=== PATIENT | male | born 1965 | race Caucasian/White ===

== ENCOUNTER 2020-03-28 19:15 | Inpatient (IN) | payer OTHER ==
[~2020-03-28] VITALS: Ht 188 cm; Wt 104.1 kg
--- NOTE | 2020-03-28 19:39 | NUR ---
TASK RN: PT LAYING IN BED, BEDRAILS UP, CALL LIGHT IN REACH, CONNECTED TO CARDIAC, BP AND O2 MONITORS. POSITIONED TO COMFORT, ALL NEEDS MET AT THIS TIME.
[2020-03-28 19:51] LABS: INTERNATIONAL NORMALIZED RATIO 0.97 (0.93-1.1); PROTHROMBIN TIME 10.3 Seconds (9.6-11.5)
[2020-03-28 19:54] LABS: ALANINE AMINOTRANSFERASE 26 U/L (12-78); ANION GAP 6 mmol/L (5-15); CALCIUM 9.6 mg/dL (8.5-10.1); CHLORIDE 106 mmol/L (98-107); CREATININE 0.91 mg/dL (0.7-1.3)
[2020-03-28 19:57] LABS: ALKALINE PHOSPHATASE 99 U/L (45-117); BILIRUBIN,TOTAL 0.6 mg/dL (0.2-1.0); TOTAL PROTEIN 8.4 g/dL (6.4-8.2)
[2020-03-28] MEDS ORDERED: HYDROcodone/APAP 5/325 TABLET PO ONE (20:00)
[2020-03-28 20:26] LABS: BASOPHILS # (AUTO) 0.03 x10^3/uL (0-0.1); BASOPHILS % (AUTO) 0 % (0-1); EOSINOPHILS # (AUTO) 0.49 x10^3/uL (0-0.4); EOSINOPHILS % (AUTO) 5 % (1-7); LYMPHOCYTES # (AUTO) 2.32 x10^3/uL (1-3.4); LYMPHOCYTES % (AUTO) 23 % (22-44); MD NO; MEAN CORPUSCULAR HEMOGLOBIN 27.9 pg (27.5-34.5); MEAN CORPUSCULAR HGB CONC 32.1 g/dL (33.2-36.2); MEAN CORPUSCULAR VOLUME 86.8 fL (81-97); MEAN PLATELET VOLUME 7.7 fL (7.4-10.4); MONOCYTES # (AUTO) 0.74 x10^3/uL (0.2-0.8); MONOCYTES % (AUTO) 7 % (2-9); NEUTROPHILS # (AUTO) 6.69 x10^3/uL (1.8-6.8); NEUTROPHILS % (AUTO) 65 % (42-75); PLATELET COUNT 327 x10^3/uL (130-400); RED BLOOD COUNT 5.63 x10^6/uL (4.38-5.82); RED CELL DISTRIBUTION WIDTH 13.4 % (9.4-14.8)
--- NOTE | 2020-03-28 20:50 | NUR ---
PATIENT JUST SENT TO CT SCAN, VSS,NAD. HE DENIES ANY SOB OR CP. RN WILL CONTINUE TO MONITOR
[2020-03-28] MEDS ORDERED: PLEASE ENTER ALLERGIES MC SCH (21:30)
[2020-03-28] MEDS ORDERED: OMNIPAQUE 350 MG/ML, 150 ML BOTTLE ONE (21:30)
[2020-03-28] MEDS ORDERED: HEPARIN 5,000 UNITS/ML, 1ML ONE (21:50)
[2020-03-28] MEDS ORDERED: HEPARIN 25,000 UNITS/250ML PMX 250 ML ONE (21:51)
[2020-03-28] MEDS ORDERED: HEPARIN 5,000 UNITS/ML, 1ML IV PRN (22:00)
[2020-03-28] MEDS ORDERED: morphine SULFATE 10 MG/ML, 1ML IVPush PRN (22:00)
[2020-03-28] MEDS ORDERED: BISACODYL 10 MG SUPP PR PRN (22:00)
[2020-03-28] MEDS ORDERED: POLYETHYLENE GLYCOL 17 GM PACKET PO PRN (22:00)
[2020-03-28] MEDS ORDERED: HEPARIN 5,000 UNITS/ML, 1ML IV ONE ×2 (22:00→23:00)
[2020-03-28] MEDS ORDERED: HYDROcodone/APAP 5/325 TABLET PO PRN (22:00)
[2020-03-28] MEDS ORDERED: hydrALAzine 20 MG/ML, 1ML IVPush PRN (22:00)
[2020-03-28] MEDS ORDERED: ACETAMINOPHEN 325 MG TABLET PO PRN (22:00)
[2020-03-28] MEDS ORDERED: HEPARIN 25,000 UNITS/250ML PMX 250 ML IV PRN ×2 (22:00→23:00)
[2020-03-28] MEDS ORDERED: MELATONIN 5 MG TABLET PO PRN (22:00)
[2020-03-28] MEDS ORDERED: ONDANSETRON 2MG/ML, 2ML IVPush PRN (22:00)
[2020-03-28 22:51] LABS: TROPONIN I < 0.015 ng/mL (0.000-0.045)
[2020-03-28 23:00] VITALS: BP 163/105
[2020-03-28] MEDS ORDERED: METF500T17 PO (23:08)
[2020-03-28 23:41] VITALS: BP 159/91
[2020-03-29 04:03] VITALS: BP 138/90
[2020-03-29 04:52] LABS: BASOPHILS # (AUTO) 0.06 x10^3/uL (0-0.1); BASOPHILS % (AUTO) 1 % (0-1); EOSINOPHILS # (AUTO) 0.64 x10^3/uL (0-0.4); EOSINOPHILS % (AUTO) 6 % (1-7); LYMPHOCYTES # (AUTO) 3.49 x10^3/uL (1-3.4); LYMPHOCYTES % (AUTO) 34 % (22-44); MD NO; MEAN CORPUSCULAR HEMOGLOBIN 28.1 pg (27.5-34.5); MEAN CORPUSCULAR HGB CONC 32.8 g/dL (33.2-36.2); MEAN CORPUSCULAR VOLUME 85.7 fL (81-97); MEAN PLATELET VOLUME 7.4 fL (7.4-10.4); MONOCYTES # (AUTO) 0.81 x10^3/uL (0.2-0.8); MONOCYTES % (AUTO) 8 % (2-9); NEUTROPHILS # (AUTO) 5.14 x10^3/uL (1.8-6.8); NEUTROPHILS % (AUTO) 51 % (42-75); PLATELET COUNT 281 x10^3/uL (130-400); RED BLOOD COUNT 5.18 x10^6/uL (4.38-5.82); RED CELL DISTRIBUTION WIDTH 13.7 % (9.4-14.8)
[2020-03-29 05:04] LABS: ANION GAP 5 mmol/L (5-15); CALCIUM 9.3 mg/dL (8.5-10.1); CHLORIDE 110 mmol/L (98-107)
[2020-03-29 05:05] LABS: CREATININE 0.74 mg/dL (0.7-1.3)
[2020-03-29] MEDS: HEPARIN 5,000 UNITS/ML, 1ML IV PRN ×3 (05:16→18:26)
[2020-03-29 06:59] VITALS: BP 152/89
[2020-03-29] MEDS ORDERED: FAMOTIDINE 20 MG/2 ML IVPush SCH (09:00)
[2020-03-29] MEDS ORDERED: SENNA/DOCUSATE TABLET PO SCH (09:00)
[2020-03-29] MEDS ORDERED: FAMOTIDINE 20 MG TABLET ONE (09:02)
[2020-03-29] MEDS: metFORMIN 500 MG TABLET PO SCH ×2 (09:05→18:26)
[2020-03-29] MEDS: FAMOTIDINE 20 MG TABLET PO SCH ×2 (09:05→21:53)
[2020-03-29 13:40] VITALS: BP 142/86
[2020-03-29 21:40] VITALS: BP 154/89
[2020-03-30 00:50] VITALS: BP 143/83
[2020-03-30] MEDS: FAMOTIDINE 20 MG TABLET PO SCH (08:55)
[2020-03-30] MEDS: metFORMIN 500 MG TABLET PO SCH (08:55)
[2020-03-30] MEDS ORDERED: SENNA/DOCUSATE TABLET PO PRN (09:00)
[2020-03-30] MEDS ORDERED: APIX5TAB PO (11:08)
[2020-03-30 12:40] VITALS: BP 157/80
[2020-03-30 12:58] VITALS: BP 157/80
== END 2020-03-30 13:25 | disposition home or self-care (01) | DRG 299 ==
LOC: ED 19:32 → EDIP 21:18 → 5SO 22:45 → DCLOUNGE 03-30 13:10
PROVIDERS: ADMIT Internal Medicine; ATTEND Internal Medicine
DX: I82.403 Acute embolism and thrombosis of unspecified deep veins of lower extremity, bilateral (principal); I26.99 Other pulmonary embolism without acute cor pulmonale; D68.59 Other primary thrombophilia; E11.9 Type 2 diabetes mellitus without complications; I10 Essential (primary) hypertension; Z79.84 Long term (current) use of oral hypoglycemic drugs; Z88.0 Allergy status to penicillin; Z79.899 Other long term (current) drug therapy
CPT/HCPCS: 36415; 71275; 74177; 80048; 80053; 83880; 84484; 85025; 85303; 85306; 85520; 85598; 85610; 85613; 85670; 85730; 85732; 86146; 86147; 93005; 93306; G0378; J1644; Q9967

== ENCOUNTER → 2020-03-28 | Outpatient (CLI) | payer OTHER ==
[~2020-03-28] MED LIST: APIX5TAB PO; METF500T17 PO
== END | disposition home or self-care (01) ==
LOC: RAD 16:58
PROVIDERS: ATTEND Internal Medicine
DX: I82.403 Acute embolism and thrombosis of unspecified deep veins of lower extremity, bilateral (principal); R22.42 Localized swelling, mass and lump, left lower limb
CPT/HCPCS: 93970

== ENCOUNTER 2020-04-12 18:10 | Emergency (ER) | payer OTHER ==
[~2020-04-12] VITALS: Ht 188 cm; Wt 108.7 kg
--- NOTE | 2020-04-12 18:50 | NUR ---
PAIN IN LOWER RIGHT SIDE OF BACK X 1 MONTH, WENT AWAY AND RETURNED LAST NIGHT. DENIED INJURIES, URINARY SYMPTOMS. PT IN BED ON CONT MANAGER STYLIST, SPO2, BP Q 30 MIN, SIDE RAILS UP X2, CALL LIGHT IN REACH. WENT OVER PLAN OF CARE FROM ORDER LIST, AGREES TO POC.
--- NOTE | 2020-04-12 18:55 | NUR ---
Received report from Derek MESA.
[2020-04-12 19:00] LABS: BASOPHILS # (AUTO) 0.04 x10^3/uL (0-0.1); BASOPHILS % (AUTO) 1 % (0-1); EOSINOPHILS # (AUTO) 0.45 x10^3/uL (0-0.4); EOSINOPHILS % (AUTO) 5 % (1-7); LYMPHOCYTES # (AUTO) 2.17 x10^3/uL (1-3.4); LYMPHOCYTES % (AUTO) 26 % (22-44); MD NO; MEAN CORPUSCULAR VOLUME 84.9 fL (81-97); MEAN PLATELET VOLUME 7.9 fL (7.4-10.4); MONOCYTES % (AUTO) 6 % (2-9); NEUTROPHILS # (AUTO) 5.26 x10^3/uL (1.8-6.8); NEUTROPHILS % (AUTO) 63 % (42-75); PLATELET COUNT 330 x10^3/uL (130-400); RED BLOOD COUNT 5.33 x10^6/uL (4.38-5.82); RED CELL DISTRIBUTION WIDTH 13.9 % (9.4-14.8)
[2020-04-12 19:08] LABS: ALANINE AMINOTRANSFERASE 20 U/L (12-78); ALBUMIN 3.8 g/dL (3.4-5.0); ANION GAP 8 mmol/L (5-15); CALCIUM 9.8 mg/dL (8.5-10.1); CHLORIDE 109 mmol/L (98-107); CREATININE 0.75 mg/dL (0.7-1.3)
[2020-04-12 19:10] LABS: ALKALINE PHOSPHATASE 80 U/L (45-117); BILIRUBIN,TOTAL 0.6 mg/dL (0.2-1.0); TOTAL PROTEIN 7.4 g/dL (6.4-8.2)
[2020-04-12 19:53] VITALS: BP 125/80
[2020-04-12 21:49] LABS: MICROSCOPIC NOT IND
== END 2020-04-12 22:21 | disposition home or self-care (01) ==
LOC: ED 20:54
DX: M54.5 Low back pain (principal); M79.605 Pain in left leg; M79.604 Pain in right leg; E11.9 Type 2 diabetes mellitus without complications
CPT/HCPCS: 36415; 74021; 80053; 81003; 85025; 99284